=== PATIENT | female | born 2000 | race Caucasian/White ===

== ENCOUNTER 2018-08-18 16:51 | Emergency (ER) | payer MEDICAID ==
[~2018-08-18] VITALS: Ht 160 cm; Wt 49.9 kg
[~2018-08-18 16:51] MED LIST: ALBU90OI INH; Amoxicillin500 MG PO; IBUP400 PO; ONDA4ODT MM; PERM5TC TOP; RXONDA4ODT MM; SPACE CHAMBER1 EACH MC
[2018-08-18] MEDS ORDERED: Sprintec1 EACH PO (17:04)
[2018-08-18 17:40] LABS: Source, Urine Clean Catch
[2018-08-18 17:49] LABS: Bilirubin, Urine Neg (Neg); Blood, Urine 1+ (Neg); Glucose Qualitative, Urine Neg (Neg); Ketones, Urine Neg (Neg); Leukocyte Esterase, Urine 1+ (Neg); Nitrite, Urine Pos (Neg); Protein, Urine 2+ (Neg); Specific Gravity, Urine 1.015 (1.003-1.022); Urobilinogen, Urine NORM (Normal); pH, Urine 6.5 (5.0-8.0)
[2018-08-18 18:28] LABS: Appearance, Urine Hazy (Clear); Color, Urine Yellow (P-Yellow)
[2018-08-18 18:29] LABS: Amorphous Mod (0-Heavy); Bacteria Mod /hpf; Mucus Mod (0-Heavy); Red Blood Cells, Urine 0-2 /hpf (0-2); Squamous Epithelial Cells Mod /hpf (Few)
[2018-08-18] MEDS ORDERED: Keflex500 MG PO (18:33)
== END 2018-08-18 18:55 | disposition home or self-care (01) ==
LOC: ER 16:51
PROVIDERS: Physician Assistant
DX: N39.0 Urinary tract infection, site not specified (principal); G43.909 Migraine, unspecified, not intractable, without status migrainosus; Z87.891 Personal history of nicotine dependence
CPT/HCPCS: 81001; 81025; 87077; 87086; 87186; 99283